=== PATIENT | male | born 1970 | race Caucasian/White ===

== ENCOUNTER 2020-12-01 15:02 | Emergency (ER) | payer OTHER ==
[~2020-12-01] VITALS: Ht 170.2 cm; Wt 102.1 kg
[2020-12-01] MEDS ORDERED: KETOROLAC TROMETHAMINE 60 MG/2 ML VIAL IM ONE (15:30)
[2020-12-01] MEDS ORDERED: DIAZEPAM 5 MG TAB PO PRN (15:30)
[2020-12-01 17:41] VITALS: BP 139/74
== END 2020-12-01 17:42 | disposition home or self-care (01) ==
LOC: ER 15:15
DX: M54.5 Low back pain (principal); V89.2XXA Person injured in unspecified motor-vehicle accident, traffic, initial encounter; Y92.414 Local residential or business street as the place of occurrence of the external cause
CPT/HCPCS: 72110; 99283; J1885